=== PATIENT | male | born 1975 | race Caucasian/White ===

== ENCOUNTER 2018-04-03 17:08 | Emergency (ER) | payer BC ==
[2018-04-03] MEDS ORDERED: Triamcinolone Acetonide 40 MG/ML 1 ML MDV IM ONE (17:35)
[2018-04-03 17:40] VITALS: BP 131/84
[2018-04-03] MEDS ORDERED: Triamcinolone Acetonide 0.5% Crm 15 GM Tube TOP SCH (17:45)
[2018-04-03] MEDS ORDERED: hydrALAZINE 25 MG Tab PO SCH (17:45)
--- NOTE | 2018-04-05 11:32 | ER ---
DATE SEEN: 04/03/2018 TIME SEEN: The patient was seen at 1715 hours. 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 Last week, he went to view a property that he had purchased (6 days ago) and he noted he started a rash. The rash got progressively worse. This started in his left lower leg antecubital fossa and left lower leg. The left lower leg is extensive. It is blistering. It is cold. He has used Benadryl, but has not given any relief. ALLERGIES: None. MEDICATIONS: None except for [id number] Benadryl which has not been helpful. PAST MEDICAL HISTORY: Noncontributory. He is a healthy man. Nonsmoker. Rarely drinks alcohol. No diabetes, heart disease, high blood pressure, asthma, or other serious illnesses. REVIEW OF SYSTEMS: Negative. MEDICATIONS: None. PHYSICAL EXAMINATION: GENERAL: Alert, healthy-looking man who has good eye contact and in moderate discomfort secondary to extensive left blistering poison juvencio dermatitis. Refreshingly alert pleasant fellow with moderate discomfort with the dermatitis in his left lower extremity and right antecubital fossa and extensive dermatitis left lower extremity and right groin discomfort. VITAL SIGNS: Blood pressure 131/84, heart rate 92, respirations 16, oxygen saturation 94% room air. 103.4 kg, BMI 29.3 kg/meter squared. HEENT: Negative. Pharynx without abnormality. LUNGS: Clear without rales, rhonchi, or wheezes. HEART: S1, S2. No murmur. ABDOMEN: Soft. No guarding. No abdominal discomfort. MUSCULOSKELETAL: Normal. NEURO: Normal. On inspection, there is muscle motion. SKIN: Dermis, extensive vesicular macerated erythematous raised weeping left lower extremity, two-thirds involvement of anterior surface. Right vesicular lesions with small amount of erythema and right antecubital fossa. Right lower extremity has mild erythema. Medial lower extremity approximately 4 cm diameter and right groin erythema with scattered vesicles. No extension to the testicles or penis. ASSESSMENT: Poison juvencio dermatitis. PLAN: 1. Treat with triamcinolone cream, apply b.i.d. 0.5%. 2. Kenalog 40 mg injection. 3. Prednisone 60 mg daily for one week, 40 mg daily for second week, 20 mg daily for the third week per up to date recommendation. Taper of the third week. 4. Atarax 25 tid The patient advised that this is aggressive approach to treating his poison juvencio dermatitis and also supported by literature. Advised that prednisone can have side effects. We discussed those. The patient to follow up with doctor on an as needed basis. Otherwise, if he has any signs of infection, see the doctor earlier. I did not start him on antibiotics presently. /[id number] PANTERA/MANSOOR VERGARA
== END 2018-04-03 18:09 | disposition home or self-care (01) ==
LOC: FB.ED 17:08
DX: L23.7 Allergic contact dermatitis due to plants, except food (principal)
CPT/HCPCS: 96372; 99282; J3301; A9270-GY

== ENCOUNTER 2023-02-25 06:22 | Day surgery (SDC) | payer BC ==
[~2023-02-25 06:22] MED LIST: Lactated Ringers 1,000 ML IV SCH; Sodium Chloride 0.9% 10 ML Syringe FLUSH PRN
[2023-02-25] MEDS ORDERED: Glycopyrrolate 0.2 MG/ML 5 ML MDV IV ONE (06:23)
[2023-02-25] MEDS ORDERED: Propofol 200 MG/20 ML SDV IV ONE (06:23)
[2023-02-25] MEDS ORDERED: Lidocaine 2% 5 ML SDV INJECT ONE (06:23)
[2023-02-25] MEDS ORDERED: Simethicone Drops 40 MG/0.6 ML 30 ML Bottle PO ONE (07:39)
[2023-02-25 09:31] VITALS: BP 129/98; PULSE 79
== END 2023-02-25 08:54 | disposition home or self-care (01) ==
LOC: FB.SDS 06:22
PROVIDERS: ATTEND Surgery
DX: Z12.11 Encounter for screening for malignant neoplasm of colon (principal); K52.89 Other specified noninfective gastroenteritis and colitis; Z98.890 Other specified postprocedural states; Z88.1 Allergy status to other antibiotic agents
CPT/HCPCS: 00812; 45380; 45385; 88305; A9270; J2704; J3490; J7120